=== PATIENT | female | born 1940 | race Caucasian/White ===

== ENCOUNTER 2017-12-28 05:21 | Inpatient (IN) | payer MEDICARE, BC ==
[~2017-12-28] VITALS: Ht 160 cm; Wt 68.0 kg
[2017-12-28] MEDS ORDERED: ONDANSETRON 4 MG/2 ML VIAL IV ONE ×2 (05:45→07:00)
[2017-12-28] MEDS ORDERED: HYDROMORPHONE 1 MG/1 ML DISP.SYRIN IV ONE ×3 (05:45→07:00)
[2017-12-28] MEDS ORDERED: IV NORMAL SALINE 1000 ML BAG IV ONE ×2 (05:45→07:00)
[2017-12-28] MEDS ORDERED: ONDANSETRON 4 MG/2 ML VIAL ONE ×2 (05:46→07:04)
[2017-12-28] MEDS ORDERED: HYDROMORPHONE 2 MG/1 ML DISP.SYRIN ONE ×3 (05:48→07:03)
[2017-12-28] MEDS ORDERED: THYROID (05:56)
[2017-12-28] MEDS ORDERED: HTN MED (05:56)
--- NOTE | 2017-12-28 06:00 | NUR ---
PT C/O SEVERE ABD PAIN ACCOMPANIED BY N/V SINCE 6PM LAST NIGHT. EQUINE INTERN AT BEDSIDE.
--- NOTE | 2017-12-28 06:05 | NUR ---
Patient taken to CT.
--- NOTE | 2017-12-28 06:31 | NUR ---
LAB AT BEDSIDE FOR BLOOD DRAW.
[2017-12-28] MEDS ORDERED: PANTOPRAZOLE SODIUM 40 MG VIAL IV ONE (07:00)
[2017-12-28] MEDS ORDERED: PANTOPRAZOLE SODIUM 40 MG VIAL ONE (07:04)
[2017-12-28 07:14] LABS: BASOPHILS # (AUTO) 0.1 K/uL (0.0-8.0); BASOPHILS % (AUTO) 0.6 % (0.0-2.0); EOSINOPHILS % (AUTO) 0.2 % (0.0-7.0); HEMATOCRIT 39.3 % (31.2-41.9); HEMOGLOBIN 12.9 g/dL (10.9-14.3); LYMPHOCYTES # (AUTO) 0.6 K/uL (20.0-40.0); MEAN CORPUSCULAR HEMOGLOBIN 28.9 uug (24.7-32.8); MEAN CORPUSCULAR HGB CONC 33 g/dL (32.3-35.6); MONOCYTES # (AUTO) 0.9 K/uL (2.0-10.0); MONOCYTES % (AUTO) 4.3 % (0.0-11.0); NEUTROPHILS # (AUTO) 19.3 K/uL (1.8-8.9); NEUTROPHILS % (AUTO) 91.9 % (38.5-71.5); PLATELET COUNT (AUTO) 268 K/uL (179-408); RED BLOOD CELL COUNT(AUTO) 4.47 MIL/uL (3.63-4.92); WHITE BLOOD COUNT (AUTO) 21.1 K/uL (3.8-11.8)
--- NOTE | 2017-12-28 07:18 | NUR ---
RECIEVED PT IN BED, [employer] AND FAMILY MEMBER AT BEDSIDE,
--- NOTE | 2017-12-28 07:18 | NUR ---
REPORT GIVEN TO DAY SHIFT NURSE BRI DASH.
[2017-12-28 07:26] LABS: CARBON DIOXIDE 26 mmol/L (21-32); CHLORIDE 99 mmol/L (98-107); CREATININE 1.4 mg/dL (0.6-1.3); GLUCOSE 144 mg/dL (74-106); POTASSIUM 3.7 mmol/L (3.5-5.1); UREA NITROGEN, BLOOD 28 mg/dL (7-18)
[2017-12-28 07:35] LABS: LYMPHOCYTES % (MANUAL) 2 % (20-40); MONOCYTES % (MANUAL) 3 % (2-10); NEUTROPHILS % (MANUAL) 95 % (42-75)
[2017-12-28 07:38] LABS: ALANINE AMINOTRANSFERASE 10 U/L (14-59); ALKALINE PHOSPHATASE 83 U/L (50-136); ASPARTATE AMINOTRANSFERASE 19 U/L (15-37); BILIRUBIN,DIRECT 0.1 mg/dL (0.0-0.2); BILIRUBIN,TOTAL 0.6 mg/dL (0.2-1.0); TOTAL PROTEIN, SERUM 7.1 g/dL (6.4-8.2)
--- NOTE | 2017-12-28 07:55 | NUR ---
PT DOES NOT KNOW THE NAME OF MEDS. SHE KNOWS THAT SHE TAKES SYNTHROID, BLOOD PRESSURE MEDS, AND CHOLESTEROL MED. DOES NOT KNOW PHARMACY SHE GETS IT FROM. FAMILY MEMBER PROMISED TO GO HOME AND CALL FOR THE NAME AND DOSAGES.
[2017-12-28] MEDS ORDERED: PIPERACILLIN SODIUM/TAZOBACTAM 3.375 G in IV DEXTROSE 5% 50 ML IV ONE (08:00)
[2017-12-28] MEDS ORDERED: PIPERACILLIN/TAZOBACTAM/D5W 50 ML IV ONE (08:02)
[2017-12-28 08:15] LABS: LIPASE 11700 U/L (73-393)
--- NOTE | 2017-12-28 08:18 | NUR ---
PT SON CALLED BACK WITH THE [employer] INFO
[2017-12-28] MEDS ORDERED: LOSA1TAB39 PO (08:25)
[2017-12-28] MEDS ORDERED: ATOR20TA PO (08:25)
[2017-12-28] MEDS ORDERED: PROP20TA7 PO (08:25)
[2017-12-28] MEDS ORDERED: LEVO150T PO (08:25)
--- NOTE | 2017-12-28 08:29 | NUR ---
PT AMBUALTED TO BTHROOM WITH ASSISSTANCE, URINE SENT TO LAB
--- NOTE | 2017-12-28 08:32 | NUR ---
PT STILL HAS ABDOMINAL PAIN 4/10, BUT REFUSING PAIN MED AT THIS TIME.
[2017-12-28 09:01] LABS: *BILIRUBIN,URIN NEGATIVE (NEGATIVE); *BLOOD, URINE NEGATIVE (NEGATIVE); *CLARITY,URINE CLOUDY (CLEAR); *COLOR,URINE YELLOW (YELLOW); *KETONES,URINE NEGATIVE (NEGATIVE); *PROTEIN,URINE 2+ (NEGATIVE); *UROBILINOGEN,URINE 0.2 E.U./dl (NORMAL); LEUKOCYTE ESTERASE ,URINE NEGATIVE (NEGATIVE); NITRITE, URINE NEGATIVE (NEGATIVE); PH,URINE 7.5 (5.0-8.0); UGLUCOSE NEGATIVE (NEGATIVE)
[2017-12-28] MEDS ORDERED: HYDROMORPHONE 1 MG/1 ML DISP.SYRIN IV STA (09:08)
[2017-12-28] MEDS ORDERED: HYDROMORPHONE 4 MG/1 ML DISP.SYRIN ONE (09:13)
[2017-12-28 09:14] LABS: BACTERIA,URINE FEW /HPF (NONE SEEN); RBC,URINE 0-3 /HPF (0-3); SQUAMOUS EPITHELIAL CELL,UR FEW /HPF (NONE SEEN); URINE AMORPHOUS PHOSPHATES MODERATE /HPF; WBC,URINE 0-3 /HPF (0-3)
[2017-12-28] MEDS ORDERED: IV NS 1000 ML 1,000 ML IV ONE (09:15)
--- NOTE | 2017-12-28 09:30 | NUR ---
PT TRANSFERED TO FLOOR IN STABLE CONDITION.
[2017-12-28 09:45] VITALS: BP 138/52
--- NOTE | 2017-12-28 10:00 | NUR ---
Received pt from ER. PT is in no acute distress. Discussed plan with pt re: proper pain management. IVF infusing as ordered from ER. IV intact. Call light is within reach.
[2017-12-28 11:54] VITALS: BP 139/73
--- NOTE | 2017-12-28 13:00 | NUR ---
Dr spence at bedside assessing pt and discussed plans with pts family. Dr spence aware of pt c/o abd pain. Awaiting further orders. Call light is within reach.
[2017-12-28] MEDS ORDERED: HYDROMORPHONE 1 MG/1 ML DISP.SYRIN IV PRN (13:15)
[2017-12-28] MEDS ORDERED: ENOXAPARIN SODIUM 40 MG/0.4 ML DISP.SYRIN SQ SCH (13:30)
[2017-12-28] MEDS ORDERED: ALBUTEROL SULFATE 2.5 MG/3 ML NEBU NEB PRN (13:30)
[2017-12-28] MEDS ORDERED: HYDROMORPHONE 2 MG/1 ML DISP.SYRIN IV PRN (13:45)
[2017-12-28] MEDS ORDERED: MEROPENEM 0.5 G in IV NORMAL SALINE 50 ML IV SCH (14:00)
--- NOTE | 2017-12-28 15:30 | NUR ---
Family anxious on when the new abx and IVF will be started. F/u call made to pharmacy secondary to pt's new order from dr spence re: abx and ivf still not available and not on hand. Pt comfortable in bed. Pain medications effective. Pt's pain decreased to 2/10 from 810. Dilaudid 1 mg effective. Call light is within reach.
[2017-12-28 15:48] VITALS: BP 148/66
--- NOTE | 2017-12-28 16:00 | NUR ---
Report received from RN Cru[employer]. Patient is in bed, extreme pain reported. Bed in low position, side rails up x2. Bed alarm on.
[2017-12-28] MEDS: MEROPENEM 500 MG in IV NORMAL SALINE 50 ML IV SCH (16:14)
[2017-12-28] MEDS: POTASSIUM CHLORIDE 20 MEQ in IV D5 1/2 NS 1000 ML 1,000 ML IV PRN (16:15)
[2017-12-28] MEDS: HYDROMORPHONE 2 MG/1 ML DISP.SYRIN IV PRN ×3 (16:47→23:56)
--- NOTE | 2017-12-28 18:54 | NUR ---
IV was started, Dr. Babcock increased dosage on pain medication as prior dose is not effective. Patient is currently in bed, bed in low position, side rails up x2.
--- NOTE | 2017-12-28 19:35 | NUR ---
PT RECEIVED IN BED, AWAKE. A/OX3. ABLE TO MAKE NEEDS KNOWN. V/S STABLE. IN NO ACUTE DISTRESS. PT C/O ABDOMINAL PAIN 10/10 AT THIS TIME. 104 SINUS TACH ON THE TELE MONITOR. IVF INFUSING. IV ON RFA INTACT AND PATENT. IV ON LAC INTACT AND PATENT. ON 2LNC, TOLERATING WELL. PT ENCOURAGED TO DEEP BREATH. PT HAS FEVER AT 100.9F. COOLING MEASURES INITIATED, BLANKETS REMOVED, ROOM TEMP DECREASED. PT IS NPO. HOB ELEVATED. SAFETY MEASURES IMPLEMENTED. BED ALARM SET. CALL LIGHT WITHIN REACH.
[2017-12-28 20:00] VITALS: BP 147/62
[2017-12-28] MEDS: FAMOTIDINE. 20 MG/2 ML VIAL IV SCH (20:14)
[2017-12-28] MEDS: ACETAMINOPHEN 650 MG SUPP.RECT RC PRN (20:14)
[2017-12-28] MEDS: ENOXAPARIN SODIUM 30 MG/0.3 ML DISP.SYRIN SUBCUT SCH (20:16)
[2017-12-28] MEDS: LORAZEPAM 2 MG/1 ML VIAL IV PRN (23:16)
--- NOTE | 2017-12-28 23:20 | NUR ---
ADMINISTERED ATIVAN ORDERED. PT C/O OF FEARING BEING ALONE, UNABLE TO SLEEP. FEELING ANXIOUS. IN STABLE CONDITION. WILL CONT TO MONITOR.
[2017-12-29] VITALS: BP 142/70
[2017-12-29 04:00] VITALS: BP 159/72
[2017-12-29] MEDS: POTASSIUM CHLORIDE 20 MEQ in IV D5 1/2 NS 1000 ML 1,000 ML IV PRN ×2 (04:35→16:01)
[2017-12-29] MEDS ORDERED: HYDROMORPHONE 2 MG/1 ML DISP.SYRIN ONE (05:47)
[2017-12-29] MEDS: HYDROMORPHONE 2 MG/1 ML DISP.SYRIN IV PRN ×2 (06:17→13:00)
--- NOTE | 2017-12-29 06:36 | NUR ---
END OF SHIFT NOTES. PT SLEPT INTERMITTENTLY THROUGHOUT SHIFT. IN STABLE CONDITION. IVF INFUSING. PAIN MANAGED THROUGHOUT SHIFT. KEPT NPO. CONT TO BE FEBRILE. COOLING MEASURES IMPLEMENTED. SINUS TACHY 95 ON THE TELE MONITOR. SAFETY MAINTAINED. CALL LIGHT WITHIN REACH.
[2017-12-29] MEDS: ACETAMINOPHEN 650 MG SUPP.RECT RC PRN ×2 (06:46→20:22)
[2017-12-29 07:00] LABS: BASOPHILS % (AUTO) 0.1 % (0.0-2.0); EOSINOPHILS # (AUTO) 0.2 K/uL (0.0-0.7); EOSINOPHILS % (AUTO) 0.7 % (0.0-7.0); HEMATOCRIT 35.9 % (31.2-41.9); HEMOGLOBIN 11.8 g/dL (10.9-14.3); LYMPHOCYTES # (AUTO) 0.6 K/uL (20.0-40.0); LYMPHOCYTES % (AUTO) 2.7 % (20.5-51.5); MEAN CORPUSCULAR HEMOGLOBIN 29.2 uug (24.7-32.8); MEAN CORPUSCULAR HGB CONC 33 g/dL (32.3-35.6); MEAN CORPUSCULAR VOLUME 88.7 fL (75.5-95.3); MONOCYTES # (AUTO) 1.8 K/uL (2.0-10.0); MONOCYTES % (AUTO) 7.9 % (0.0-11.0); NEUTROPHILS # (AUTO) 19.8 K/uL (1.8-8.9); NEUTROPHILS % (AUTO) 88.6 % (38.5-71.5); PLATELET COUNT (AUTO) 254 K/uL (179-408); RED BLOOD CELL COUNT(AUTO) 4.04 MIL/uL (3.63-4.92); WHITE BLOOD COUNT (AUTO) 22.3 K/uL (3.8-11.8)
[2017-12-29 07:23] LABS: IRON, SERUM 18 ug/dL (50-175)
[2017-12-29 07:31] LABS: ALANINE AMINOTRANSFERASE 7 U/L (14-59); ALKALINE PHOSPHATASE 72 U/L (50-136); ASPARTATE AMINOTRANSFERASE 18 U/L (15-37); BILIRUBIN,TOTAL 0.7 mg/dL (0.2-1.0); CARBON DIOXIDE 26 mmol/L (21-32); CHLORIDE 104 mmol/L (98-107); CHOLESTEROL 160 mg/dL (<200); CREATININE 1.5 mg/dL (0.6-1.3); GLUCOSE 110 mg/dL (74-106); HDL CHOLESTEROL 42 mg/dL (40-60); MAGNESIUM 1.4 mg/dL (1.8-2.4); POTASSIUM 3.4 mmol/L (3.5-5.1); TOTAL PROTEIN, SERUM 6.3 g/dL (6.4-8.2); TRIGLYCERIDES 115 MG/DL (30-150); UREA NITROGEN, BLOOD 22 mg/dL (7-18)
[2017-12-29 07:35] LABS: THYROID STIMULATING HORMONE 0.409 mIU/mL (0.358-3.740)
[2017-12-29 07:56] LABS: LIPASE 514 U/L (73-393)
[2017-12-29 08:00] VITALS: BP 129/70
[2017-12-29] MEDS: FAMOTIDINE. 20 MG/2 ML VIAL IV SCH ×2 (09:11→21:14)
[2017-12-29] MEDS: MEROPENEM 500 MG in IV NORMAL SALINE 50 ML IV SCH ×2 (09:11→22:28)
[2017-12-29 11:06] VITALS: BP 148/80
[2017-12-29] MEDS ORDERED: POTASSIUM PHOSPHATE MM 5 MMOL in IV DEXTROSE 5% 100 ML IV SCH (12:30)
--- NOTE | 2017-12-29 12:54 | NUR ---
CLINICAL PHARMACY NOTE: VANCOMYCIN DOSING Request for vancomycin dosing on 77 y/o female 5'3" 150lbs for pancreatitis Temp 100.2F BUN 22 Scr 1.5 WBC 22.3 also receiving Merrem Start vancomycin 1gm ivpb x 1 today. Will dose by levels due to decrease renal function. Random vancomycin level ordered for tomorrow afternoon. Will continue to monitor
[2017-12-29] MEDS: MAGNESIUM SULFATE/D5W 100 ML IV SCH ×3 (13:01→15:16)
[2017-12-29] MEDS: ONDANSETRON 4 MG/2 ML VIAL IV PRN (13:08)
[2017-12-29] MEDS ORDERED: VANCOMYCIN IV 1 G in PREMIXED 0 EACH IV ONE (14:00)
--- NOTE | 2017-12-29 14:45 | NUR ---
at this time attempts to establish a new IV line due to large amounts of IV medications schedule. Pt's sons at bedside ( Mr. Bonner, and Isaac and refusing stating "it'll be too painful for her". Patient is a hard stick as stated by them. Both brother advise on possible need of Mid-line but they refuse at this time.
[2017-12-29] MEDS: POTASSIUM PHOSPHATE MM IV SCH ×4 (14:46→20:25)
[2017-12-29] MEDS: NORMAL SALINE IV SCH ×4 (14:46→20:25)
[2017-12-29 15:10] VITALS: BP 124/55
--- NOTE | 2017-12-29 20:00 | NUR ---
RECEIVED PATIENT IN BED AWAKE, NO SOB NO CHEST PAIN, RYTHM SINUS TACHY, NOTED WITH ELEVATED TEMP 102 ORALLY, GIVEN COOLING MEASURES, WILL ADMINISTER TYLENOL SUPPOSITORIES ORDERED, NO S.S OF DISTRESS.
[2017-12-29 20:30] VITALS: BP 172/72
--- NOTE | 2017-12-29 20:45 | NUR ---
COOLING MEASURE CONTINUE, RECHECK TEMP 100. 7, COMPLAIN OF MILD ABDOMINAL PAIN, CONTINUE TO MONITOR.
[2017-12-29] MEDS: ENOXAPARIN SODIUM 30 MG/0.3 ML DISP.SYRIN SUBCUT SCH (21:18)
[2017-12-29] MEDS ORDERED: NITROGLYCERIN OINT 1 GM PACKET TP PRN (23:00)
[2017-12-29] MEDS ORDERED: AZITHROMYCIN IV 500 MG in IV DEXTROSE 5% 250 ML IV SCH (23:15)
[2017-12-30] MEDS: LORAZEPAM 2 MG/1 ML VIAL IV PRN (00:31)
[2017-12-30 00:42] VITALS: BP 149/70
[2017-12-30] MEDS ORDERED: AZITHROMYCIN 500 MG VIAL IV ONE (00:47)
[2017-12-30] MEDS: HYDROMORPHONE 2 MG/1 ML DISP.SYRIN IV PRN ×4 (02:43→21:25)
[2017-12-30 04:39] VITALS: BP 146/71
--- NOTE | 2017-12-30 06:00 | NUR ---
PATIENT SLEPT MOST OF THE NIGHT, NO SOB NO CHEST PAIN, RYTHM , RYTHM SINUS TACHY 104, CONT ON PAIN MANAGEMENT, ASSISTED WITH TOILETING, KEPT CLEAN AND DRY, WITH EPISODES OF ANXIETY, MEDICATION GIVEN WITH EFFECTIVE RESULT. NO ADVERSE REACTION NOTED, CONT TO MONITOR.
[2017-12-30] MEDS: POTASSIUM CHLORIDE 20 MEQ in IV D5 1/2 NS 1000 ML 1,000 ML IV PRN ×2 (06:18→17:36)
[2017-12-30 06:55] LABS: ALANINE AMINOTRANSFERASE 10 U/L (14-59); ALKALINE PHOSPHATASE 79 U/L (50-136); ASPARTATE AMINOTRANSFERASE 16 U/L (15-37); BASOPHILS # (AUTO) 0.1 K/uL (0.0-8.0); BASOPHILS % (AUTO) 0.3 % (0.0-2.0); BILIRUBIN,TOTAL 0.7 mg/dL (0.2-1.0); CARBON DIOXIDE 28 mmol/L (21-32); CHLORIDE 104 mmol/L (98-107); CREATININE 1.2 mg/dL (0.6-1.3); EOSINOPHILS # (AUTO) 0.5 K/uL (0.0-0.7); GLUCOSE 106 mg/dL (74-106); HEMATOCRIT 35.6 % (31.2-41.9); HEMOGLOBIN 11.6 g/dL (10.9-14.3); LIPASE 115 U/L (73-393); LYMPHOCYTES # (AUTO) 0.7 K/uL (20.0-40.0); LYMPHOCYTES % (AUTO) 2.5 % (20.5-51.5); MAGNESIUM 2.3 mg/dL (1.8-2.4); MEAN CORPUSCULAR HGB CONC 32 g/dL (32.3-35.6); MEAN CORPUSCULAR VOLUME 89.3 fL (75.5-95.3); MONOCYTES # (AUTO) 2.1 K/uL (2.0-10.0); MONOCYTES % (AUTO) 7.9 % (0.0-11.0); NEUTROPHILS # (AUTO) 23.1 K/uL (1.8-8.9); NEUTROPHILS % (AUTO) 87.3 % (38.5-71.5); PHOSPHOROUS 1.8 mg/dL (2.5-4.9); PLATELET COUNT (AUTO) 285 K/uL (179-408); POTASSIUM 4.2 mmol/L (3.5-5.1); RED BLOOD CELL COUNT(AUTO) 3.99 MIL/uL (3.63-4.92); TOTAL PROTEIN, SERUM 6.5 g/dL (6.4-8.2); UREA NITROGEN, BLOOD 13 mg/dL (7-18); WHITE BLOOD COUNT (AUTO) 26.5 K/uL (3.8-11.8)
--- NOTE | 2017-12-30 07:29 | NUR ---
PATIENT LACTIC ACID 2.[address] DAY, WITH NO NEW AT THIS TIME, STATED HE WILL BE IN SHORTLY, ENDORSE TO NEXT SHIFT.
--- NOTE | 2017-12-30 08:00 | NUR ---
AWAKE COOPERATE NO SOB OR PAIN C/O OF NAUSEA MEDICATION GIVEN ORDER CONTINUE NPO ON IVF ON FALL PRECAUTION BED ALARM ON AND CALL LIGHT IN REACH INSTRUCTION TO CALL WHEN NEED
[2017-12-30] MEDS: FAMOTIDINE. 20 MG/2 ML VIAL IV SCH ×2 (08:17→21:20)
[2017-12-30] MEDS: MEROPENEM 500 MG in IV NORMAL SALINE 50 ML IV SCH ×2 (08:17→22:40)
[2017-12-30] MEDS: ONDANSETRON 4 MG/2 ML VIAL IV PRN (08:17)
[2017-12-30 08:59] LABS: EOSINOPHILS % (MANUAL) 1 % (0-8); METAMYELOCYTES % 1 % (0-1); MYELOCYTES % 1 % (0-0)
--- NOTE | 2017-12-30 09:00 | NUR ---
OOB AMB WITH PT GEN WEAK ,ASSIST BACK TO BED C/O OF PAIN AND H/A MED GIVEN ORDER
[2017-12-30 09:04] LABS: BAND % (MANUAL) 2 % (0-10); LYMPHOCYTES % (MANUAL) 3 % (20-40); MONOCYTES % (MANUAL) 5 % (2-10); NEUTROPHILS % (MANUAL) 88 % (42-75)
[2017-12-30] MEDS: ACETAMINOPHEN 650 MG SUPP.RECT RC PRN ×2 (09:32→16:07)
--- NOTE | 2017-12-30 10:00 | NUR ---
FAMILY SON AT BEDSIDE STATE WANT TO SEE ,AND DR DAY WAS INFORM OF SITUATION/AWARE
--- NOTE | 2017-12-30 11:00 | NUR ---
DR DAY SPEAK WITH FAMILY AT BEDSIDE ,PATIENT WAS RESTING NO N/V OR PAIN AT THIS TIME
[2017-12-30 11:46] VITALS: BP 149/75
[2017-12-30] MEDS ORDERED: MAGNESIUM HYDROXIDE 30 ML LIQUID UDC PO PRN (13:00)
--- NOTE | 2017-12-30 13:00 | NUR ---
START CLEAR LIQ DIET MELLO MOD AMT NO N/V CLOSED OBSERVATION
[2017-12-30] MEDS ORDERED: SOD FERRIC GLUC COMPLX/SUCROSE 125 MG in IV NORMAL SALINE 100 ML IV SCH (14:00)
[2017-12-30] MEDS ORDERED: VANCOMYCIN IV 1 G in PREMIXED 0 EACH IV ONE (15:00)
[2017-12-30] MEDS ORDERED: NEUTRA PHOS PACKET PO ONE (15:45)
[2017-12-30 15:46] VITALS: BP 140/67
--- NOTE | 2017-12-30 16:00 | NUR ---
START NEW IV LINE #22 ON LFA AND CONTINUE IVF
--- NOTE | 2017-12-30 18:00 | NUR ---
STABLE CONDITION NO ACUTE DISTRESS PAIN AND NAUSEA UNDER CONTROL SAFETY MEASURE PROVIDED CALL LIGHT IN REACH AND INSTRUCTION TO CALL WHEN NEEDED FAMILY AT BEDSIDE
[2017-12-30] MEDS ORDERED: AZITHROMYCIN IV 500 MG in IV DEXTROSE 5% 250 ML IV SCH (20:00)
--- NOTE | 2017-12-30 20:00 | NUR ---
RECEIVED PATIENT AWAKE IN BED, SHE'S AOX3. SHE DENIES PAIN OR ANY DISCOMFORT, NO C/O NAUSEA. SAFETY AND COMFORT MEASURES IN PLACE, CALL LIGHT WITHIN PATIENT'S REACH
[2017-12-30 20:26] VITALS: BP 141/66
[2017-12-30] MEDS: DOCUSATE SODIUM 100 MG CAPSULE PO SCH (21:19)
[2017-12-30] MEDS: ENOXAPARIN SODIUM 40 MG/0.4 ML DISP.SYRIN SQ SCH (21:22)
[2017-12-31] VITALS (8 sets, daily range): BP systolic 139–166; BP diastolic 55–86
[2017-12-31] MEDS ORDERED: AZITHROMYCIN IV 500 MG in IV DEXTROSE 5% 250 ML IV SCH (01:00)
[2017-12-31] MEDS: HYDROMORPHONE 2 MG/1 ML DISP.SYRIN IV PRN ×3 (03:35→18:41)
[2017-12-31] MEDS ORDERED: ENALAPRILAT DIHYDRATE 1.25 MG/1 ML VIAL IV ONE (05:08)
[2017-12-31] MEDS: ENALAPRILAT DIHYDRATE INJ 2.5 MG in IV NORMAL SALINE 50 ML IV PRN ×2 (05:32→16:55)
[2017-12-31] MEDS: POTASSIUM CHLORIDE 20 MEQ in IV D5 1/2 NS 1000 ML 1,000 ML IV PRN ×2 (06:38→17:01)
[2017-12-31 06:47] LABS: CARBON DIOXIDE 26 mmol/L (21-32); CHLORIDE 103 mmol/L (98-107); CREATININE 0.9 mg/dL (0.6-1.3); GLUCOSE 140 mg/dL (74-106); POTASSIUM 3.8 mmol/L (3.5-5.1); UREA NITROGEN, BLOOD 9 mg/dL (7-18)
--- NOTE | 2017-12-31 06:56 | NUR ---
PATIENT SLEPT ON AND OFF THROUGH THE NIGHT, PAIN MEDS WERE GIVEN X2. BP WAS ELEVATED AT 160/85, PRN BP MEDS GIVEN WITH EFFECT. BP WENT DOWN TO 140/72. NO S/S OF PAIN OR DISTRESS AT PRESENT. NO FURTHER CHANGES
[2017-12-31] MEDS ORDERED: ACETAMINOPHEN 325 MG TABLET PO PRN (08:00)
--- NOTE | 2017-12-31 08:00 | NUR ---
AWAKE NO PAIN OR N/V NO ACUTE DISTRESS CONTINUE O2 AT 2L NO SOB RESTING WITH CALL LIGHT IN REACH AND ACCOUNTS EXECUTIVE AT BEDSIDE
[2017-12-31 08:41] LABS: BASOPHILS % (AUTO) 0.3 % (0.0-2.0); EOSINOPHILS # (AUTO) 0.3 K/uL (0.0-0.7); EOSINOPHILS % (AUTO) 1.4 % (0.0-7.0); HEMATOCRIT 32.3 % (31.2-41.9); HEMOGLOBIN 10.9 g/dL (10.9-14.3); LYMPHOCYTES # (AUTO) 0.4 K/uL (20.0-40.0); LYMPHOCYTES % (AUTO) 2.3 % (20.5-51.5); MEAN CORPUSCULAR HEMOGLOBIN 29.8 uug (24.7-32.8); MEAN CORPUSCULAR HGB CONC 34 g/dL (32.3-35.6); MEAN CORPUSCULAR VOLUME 88.3 fL (75.5-95.3); MONOCYTES # (AUTO) 1.2 K/uL (2.0-10.0); MONOCYTES % (AUTO) 6.6 % (0.0-11.0); NEUTROPHILS # (AUTO) 16.7 K/uL (1.8-8.9); NEUTROPHILS % (AUTO) 89.4 % (38.5-71.5); PLATELET COUNT (AUTO) 254 K/uL (179-408); RED BLOOD CELL COUNT(AUTO) 3.66 MIL/uL (3.63-4.92); WHITE BLOOD COUNT (AUTO) 18.7 K/uL (3.8-11.8)
[2017-12-31] MEDS: DOCUSATE SODIUM 100 MG CAPSULE PO SCH ×2 (08:49→20:11)
[2017-12-31] MEDS: FAMOTIDINE. 20 MG/2 ML VIAL IV SCH (08:49)
[2017-12-31] MEDS: FERROUS SULFATE 325 MG TABEC PO SCH (08:49)
--- NOTE | 2017-12-31 09:30 | NUR ---
OOB ASSIST TO BRP GEN WEAK ON FALL AND ASPIRATION PRECAUTION PO FLD MELLO SMALL AMT NO N/V
[2017-12-31] MEDS: MEROPENEM 500 MG in IV NORMAL SALINE 50 ML IV SCH (09:42)
[2017-12-31] MEDS ORDERED: TRAMADOL HCL 50 MG TABLET PO PRN (10:15)
--- NOTE | 2017-12-31 10:30 | NUR ---
C/O OF ABD PAIN AND H/A MED PRN GIVEN ORDER
[2017-12-31] MEDS ORDERED: HYDROCODONE/APAP 5-325MG TABLET PO PRN (11:45)
--- NOTE | 2017-12-31 12:00 | NUR ---
DR DAY SEEN PATIENT AND LAB RESULT THIS AM DIET ADVANCE TO SOFT MELLO MOD AMT NO N/V OR PAIN AT THIS TIME
[2017-12-31] MEDS ORDERED: NEUTRA PHOS PACKET PO ONE (16:00)
--- NOTE | 2017-12-31 16:00 | NUR ---
c/o of headace medication TRAMADOL PO GIVEN AND ICE PK APPLY TO FOREHEAD CLOSED OBSERVATION
--- NOTE | 2017-12-31 16:50 | NUR ---
PATIENT WAS WAKE UP AND C/O OF MID CHEST PAIN PIOT AT EPIGASTRIC AND STATE IT GOING TO RT CHEST VS TAKEN HIGH BP AT THIS TIME PHAMACY WAS CALL AND NTG OINT AND VASOTEC IVPB WAS GIVEN ORDER
--- NOTE | 2017-12-31 17:15 | NUR ---
EKG AND LAB WORK DONE AT BEDSIDE DR DAY WAS INFORM OF SITUATION BUT AT THE TIME FAMILY CALLED DR LEZAMA AND DR LEZAMA WAS PUT ORDER FOR EKG AND LAB WORK
[2017-12-31] MEDS: ONDANSETRON 4 MG/2 ML VIAL IV PRN (17:44)
[2017-12-31] MEDS ORDERED: MAG HYDROX/AL HYDROX/SIMETH 30 ML LIQUID UDC PO PRN (18:30)
--- NOTE | 2017-12-31 18:30 | NUR ---
PATIENT STATE FEEL BETTER AT- THIS TIME CLOSED OBSERVATION FAMILY AT BEDSIDE
[2017-12-31] MEDS ORDERED: hydrALAZINE HCL 20 MG/1 ML VIAL IV PRN (19:15)
[2017-12-31] MEDS ORDERED: AZITHROMYCIN 250 MG TABLET PO SCH (20:00)
--- NOTE | 2017-12-31 20:00 | NUR ---
PATIENT IS AWAKE IN BED. SHE'S AOX3 WITH CONFUSION. SHE DENIES PAIN, NO C/O OF N/V, NO RESP DISTRESS AT PRESENT. FAMILY AT BEDSIDE VISITNG WITH PATIENT. SAFETY AND COMFORT MEASURES IN PLACE
[2017-12-31] MEDS: FAMOTIDINE 20 MG TABLET PO SCH (20:11)
[2017-12-31] MEDS: ENOXAPARIN SODIUM 40 MG/0.4 ML DISP.SYRIN SQ SCH (20:12)
[2017-12-31] MEDS ORDERED: FLEET ENEMA 133 ML BOTTLE RC ONE (23:45)
--- NOTE | 2018-01-01 00:05 | NUR ---
PATIENT REFUSED SCHEDULED FLEET ENEMA, REQUESTED MOM INSTEAD MEDS GIVEN REQUESTED. WILL CONTINUE TO MONITOR PATIENT
[2018-01-01] MEDS: LORAZEPAM 2 MG/1 ML VIAL IV PRN (00:21)
--- NOTE | 2018-01-01 01:00 | NUR ---
PATIENT VERY ANXIOUS AND AGITATED, PRN ATIVAN GIVEN WITH EFFECT. PATIENT IS ASLEEP WITH NO SIGNS OF AGITATION OR ANXIETY. CALM QUIET ENVIRONMENT PROVIDED. SAFETY AND COMFORT MEASURES IN PLACE
[2018-01-01 04:26] VITALS: BP 157/88
[2018-01-01] MEDS: HYDROMORPHONE 2 MG/1 ML DISP.SYRIN IV PRN (06:38)
--- NOTE | 2018-01-01 06:52 | NUR ---
BP ELEVATED AT 174/87 PRN BP MEDS GIVEN. BP WENT DOWN TO 145/76. PATIENT IS NOW ANXIOUS, VERY AGITATED SOB. RT GAVE BREATHING TREATMENT WITH EFFECT. PAIN MEDS GIVEN, CALM AND QUIET ENVIRONMENT PROVIDED. SAFETY MEASURES IN PLACE
[2018-01-01 07:20] VITALS: BP 129/63
[2018-01-01 07:26] LABS: *BILIRUBIN,URIN NEGATIVE (NEGATIVE); *BLOOD, URINE NEGATIVE (NEGATIVE); *CLARITY,URINE CLEAR (CLEAR); *COLOR,URINE YELLOW (YELLOW); *KETONES,URINE NEGATIVE (NEGATIVE); *PROTEIN,URINE 2+ (NEGATIVE); *UROBILINOGEN,URINE 0.2 E.U./dl (NORMAL); LEUKOCYTE ESTERASE ,URINE NEGATIVE (NEGATIVE); NITRITE, URINE NEGATIVE (NEGATIVE); UGLUCOSE NEGATIVE (NEGATIVE)
--- NOTE | 2018-01-01 07:30 | NUR ---
RECEIVED PATIENT AWAKE IN BED, SHE'S AOX3. PT IS SOB REMOVING THE O2 ,PT HEART RATE IS 125 MD MADE AWARE,SHE DENIES PAIN OR ANY DISCOMFORT, NO C/O NAUSEA. SAFETY AND COMFORT MEASURES IN PLACE, CALL LIGHT WITHIN PATIENT'S REACH
[2018-01-01 07:33] LABS: BASOPHILS % (AUTO) 0.1 % (0.0-2.0); EOSINOPHILS # (AUTO) 0.4 K/uL (0.0-0.7); EOSINOPHILS % (AUTO) 2.5 % (0.0-7.0); HEMATOCRIT 32.7 % (31.2-41.9); HEMOGLOBIN 10.9 g/dL (10.9-14.3); LYMPHOCYTES # (AUTO) 0.4 K/uL (20.0-40.0); LYMPHOCYTES % (AUTO) 2.6 % (20.5-51.5); MEAN CORPUSCULAR HEMOGLOBIN 29.1 uug (24.7-32.8); MEAN CORPUSCULAR HGB CONC 33 g/dL (32.3-35.6); MEAN CORPUSCULAR VOLUME 87.6 fL (75.5-95.3); MONOCYTES # (AUTO) 1.1 K/uL (2.0-10.0); MONOCYTES % (AUTO) 6.5 % (0.0-11.0); NEUTROPHILS % (AUTO) 88.3 % (38.5-71.5); PLATELET COUNT (AUTO) 264 K/uL (179-408); RED BLOOD CELL COUNT(AUTO) 3.73 MIL/uL (3.63-4.92)
[2018-01-01 07:36] LABS: CARBON DIOXIDE 24 mmol/L (21-32); CHLORIDE 100 mmol/L (98-107); CREATININE 0.9 mg/dL (0.6-1.3); GLUCOSE 119 mg/dL (74-106); LIPASE 84 U/L (73-393); MAGNESIUM 1.6 mg/dL (1.8-2.4); POTASSIUM 3.5 mmol/L (3.5-5.1); UREA NITROGEN, BLOOD 8 mg/dL (7-18)
[2018-01-01 07:49] LABS: PHOSPHOROUS 0.9 mg/dL (2.5-4.9)
[2018-01-01 08:09] LABS: BACTERIA,URINE FEW /HPF (NONE SEEN); RBC,URINE 0-3 /HPF (0-3); SQUAMOUS EPITHELIAL CELL,UR MODERATE /HPF (NONE SEEN)
[2018-01-01] MEDS: MAGNESIUM SULFATE/D5W 100 ML IV SCH ×2 (08:27→09:36)
[2018-01-01] MEDS: DOCUSATE SODIUM 100 MG CAPSULE PO SCH (08:31)
[2018-01-01] MEDS: FERROUS SULFATE 325 MG TABEC PO SCH (08:31)
[2018-01-01 08:32] VITALS: BP 129/63
[2018-01-01] MEDS ORDERED: FUROSEMIDE 40 MG/4 ML VIAL IV STA (08:33)
--- NOTE | 2018-01-01 08:45 | NUR ---
PLACE THE PT ON TELE PER MD ORDERS.
--- NOTE | 2018-01-01 08:52 | NUR ---
PT IS VERY RESTLESS AND WANTS TO GO [facility]OOK AND BAKER AT BED SIDE,
[2018-01-01] MEDS ORDERED: HYDROCHLOROTHIAZIDE 25 MG TABLET PO SCH (09:00)
[2018-01-01] MEDS ORDERED: PROPRANOLOL HCL 40 MG TABLET PO SCH (09:00)
[2018-01-01] MEDS ORDERED: MIRALAX 17 GM POWD.PACK PO SCH (09:00)
[2018-01-01] MEDS ORDERED: LOSARTAN POTASSIUM 50 MG TABLET PO SCH (09:00)
[2018-01-01] MEDS: FAMOTIDINE 20 MG TABLET PO SCH (09:36)
--- NOTE | 2018-01-01 10:23 | NUR ---
PT FAMILY IS AT BED SIDE ASKING ALL THE TEST REPORT AND ASKING THEY WANT TO TAKE THE PT HOME MD MADE AWARE AND CHARGE NURSE MADE AWARE.
[2018-01-01] MEDS ORDERED: POTASSIUM PHOSPHATE MM 5 MMOL in IV DEXTROSE 5% 100 ML IV SCH (10:30)
--- NOTE | 2018-01-01 10:45 | NUR ---
PT AND HER FAMILY TALK TO DR DAY REG. AMA PER DR DAY PT IS NOT STABLE TO GO HOME ,ALL THE CONTRAINDICATIONS AND SIDE EFFECT EXPLAIN TO THE PT AND HER FAMILY BY DR ADY ,PT AND HER FAMILY UNDERSTANDING ALL THE SIDE EFFECTS AND HER UNSTABLE CONDITION,PT SAID SHE WILL LEAVE THE HOSPITAL AMA
--- NOTE | 2018-01-01 10:53 | NUR ---
V/S ARE STABLE ,PT DRESS PROPERLY
--- NOTE | 2018-01-01 10:53 | NUR ---
D/C TELE AND D/C [place] PER MD ORDERS
--- NOTE | 2018-01-01 10:55 | NUR ---
PT LEFT THE FACILITY WITH HER TWO SONS AND HER DEPUTY CHIEF COUNSEL AGAINST MEDICAL ADVISE AND CHARGE NURSE AND NURSING PUBLIC POLICY MEDIATOR NOTIFIED
== END 2018-01-01 10:55 | disposition left against medical advice (07) | DRG 871 ==
LOC: ER 05:23 → TELE 08:41 → MED 12-30 15:15 → TELE 01-01 08:48
PROVIDERS: ADMIT Internal Medicine; ATTEND Internal Medicine
DX: A41.9 Sepsis, unspecified organism (principal); K85.10 Biliary acute pancreatitis without necrosis or infection; N17.0 Acute kidney failure with tubular necrosis; J69.0 Pneumonitis due to inhalation of food and vomit; E87.2 Acidosis; E44.1 Mild protein-calorie malnutrition; D68.59 Other primary thrombophilia; E03.9 Hypothyroidism, unspecified; E78.5 Hyperlipidemia, unspecified; E61.1 Iron deficiency; K21.9 Gastro-esophageal reflux disease without esophagitis; K44.9 Diaphragmatic hernia without obstruction or gangrene; Z91.013 Allergy to seafood; E89.0 Postprocedural hypothyroidism; E87.6 Hypokalemia; Z68.26 Body mass index [BMI] 26.0-26.9, adult; Z74.09 Other reduced mobility; Z83.3 Family history of diabetes mellitus; Z90.710 Acquired absence of both cervix and uterus; N28.1 Cyst of kidney, acquired; I11.9 Hypertensive heart disease without heart failure
CPT/HCPCS: 36415; 70030-TC; 71045; 76700; 82378; 83550; 83605; 83690; 83735; 84100; 84443; 85025; 85730; 86301; 87040; 87086; 93005; 94664; 97530; A4663; C9113; J0360; J0456; J1170; J1650; J1940; J2060; J2185; J2405; J2543; J3370; J3475; J3480; J3490; J7030; J7042; J7060; Q0144